=== PATIENT | male | born 1960 | race Caucasian/White ===

== ENCOUNTER 2017-10-10 09:08 | Emergency (ER) | payer MEDICAID, OTHER ==
[2017-10-10] MEDS ORDERED: IBUPROFEN 600 MG TAB PO ONE (09:23)
[2017-10-10] MEDS ORDERED: HYDROCODONE/APAP 5/325 TAB PO ONE (09:23)
--- NOTE | 2017-10-10 09:30 | EDPHY ---
H & P Time Seen by Provider: 10/10/17 09:14 HPI/ROS: HPI Left knee injury. 57-year-old male by private vehicle with his . This patient reports that Friday morning at 10:00 a.m. He was in a squat position. He was standing up from the squat position when his left knee slipped behind him and inverted while he was twisting. He complains of left knee pain since that time. He is able to bear weight on it somewhat but it is painful to do so. He describes the pain as mostly involving the lateral joint line and lateral anterior aspect of the lower knee. No history of fall. He denies any loss of sensation or weakness distal to the left knee. No other complaint. ROS: Constitutional: No fever, no chills. No weakness. Musculoskeletal: No back pain. No neck pain. As above. Skin: No rashes. No lacerations or abrasions. Neurological: No focal weakness or altered sensation. Past medical history: He denies any significant past medical history. He is not on any prescription medications. No allergies to medications. Social history: Smokes marijuana. Former cigarette smoker. No alcohol. Here with his . Physical Exam: General Appearance: Alert, no distress. This patient is responding to questions appropriately and in full sentences. This patient appears well- hydrated and well-nourished. Eyes: Pupils equal and round no pallor or injection. No lid edema, erythema or injection. Left knee exam: He has a small to moderate effusion. No erythema, no warmth, no ecchymosis appreciated on palpation and inspection of the soft tissues and bony aspects of the left knee. He does have tenderness on palpation over the lateral joint line as well as as well as the inferior lateral anterior aspect of the knee distal to the lateral joint line. The knee is stable to anterior and posterior drawer testing. Is stable to valgus and varus stress testing although this does cause him discomfort. The left lower extremity is neurovascularly intact with normal capillary refill in his digits and palpable dorsalis pedis pulse. Neurological: Motor sensory function is grossly intact. Cranial nerves are normal. Skin: Warm and dry, no rashes. No lacerations or abrasions. Musculoskeletal: Neck is supple and nontender. Extremities are symmetrical except noted. All joints range without pain or impingement except noted. Psychiatric: No agitation. No depression. Database: EKG: Imaging: Left knee x-ray series: Negative for fracture, subluxation, dislocation. Interpreted by me. Procedures: Emergency department course: Vital signs reviewed. He was mildly tachycardic in triage. He was given 600 mg of ibuprofen and 2 Austin tablets. His exam is consistent with a sprain to the lateral collateral ligament. I feel that dislocation with spontaneous reduction as well as fracture and septic joint are unlikely. X-rays to be obtained. 10:15 a.m., patient re-evaluated. Resting comfortably at this time. Reports pain medication has helped. Results of his x-ray discussed with him. Left knee placed in a knee immobilizer. Plan will be to discharge him to home with orthopedic follow-up on Friday or Friday of next week. He was also provided with crutches. He was instructed on partial weight-bearing only as tolerated when in the knee brace and using the crutches. He is in agreement with this plan. Return to emergency department precautions have been reviewed with him. All of his questions were answered. He was discharged from the emergency department in good condition. His is driving. Differential Diagnosis: The differential diagnosis on this patient includes but is not limited to left knee sprain. Knee dislocation, tibial plateau fracture, septic joint unlikely. This represents a partial list of diagnoses considered. These considerations are based on history, physical exam, past history, reassessment and diagnostic testing. Smoking Status: Former smoker Constitutional: Initial Vital Signs Temperature (C) 37.2 C 10/10/17 09:15 Heart Rate 107 H 10/10/17 09:15 Respiratory Rate 20 10/10/17 09:15 Blood Pressure 134/86 H 10/10/17 09:15 O2 Sat (%) 97 10/10/17 09:15 O2 Delivery Mode Room Air Allergies/Adverse Reactions: No Known Allergies Allergy (Unverified 10/10/17 09:14) Home Medications: Medication Instructions Recorded Hydrocodone/APAP 5/325 [Austin 1 - 2 tab PO Q4-6PRN PRN #10 tab 10/10/17 5/325 (*)] Medical Decision Making - Diagnostics Imaging Results: Imaging Impressions Knee X-Ray 10/10/17 09:19 Impression: Small medial trochlear impaction of unknown age. Otherwise negative. - Data Points Medications Given: Discontinued Medications Hydrocodone Bitart/Acetaminophen (Austin 5/325) 2 tab PO EDNOW ONE Stop: 10/10/17 09:24 Last Admin: 10/10/17 09:36 Dose: 2 tab Ibuprofen (Motrin) 600 mg PO EDNOW ONE Stop: 10/10/17 09:24 Last Admin: 10/10/17 09:36 Dose: 600 mg Departure - Departure Disposition: Home, Routine, Self-Care Clinical Impression: Left knee injury Condition: Good Instructions: Knee Sprain (ED) Additional Instructions: Read and follow provided instructions. Your knee must be in the brace when up and ambulatory. Partial weight-bearing as tolerated using crutches until cleared by Orthopedics. Follow-up with Dr. Eitan Vázquez of the Orthopedic service on Friday or Friday of next week. Please call his office for appointment time today. Explained this is for an emergency department follow-up. Ibuprofen dosin mg every 6 hours with meals for the next 3 days only. Take only as needed for pain. Austin/Percocet dosin-2 every 4-6 [address] for [address] not drive on this medication. Return to the emergency department for worsening pain, swelling, discoloration, loss of sensation or weakness in her foot or other serious concerns. Referrals: Lane Contreras DO [Primary Care Provider] - As per Instructions Eitan Vázquez MD [Medical Doctor] - As per Instructions Prescriptions: Hydrocodone/APAP 5/325 [Austin 5/325 (*)] 1 - 2 tab PO Q4-6PRN PRN #10 tab PRN Reason: Pain, Moderate
[2017-10-10 09:49] VITALS: RESP 18
[2017-10-10 10:34] VITALS: BP 137/65; PULSE 78; TEMP 98; O2SAT 96
== END 2017-10-10 10:33 | disposition home or self-care (01) ==
LOC: CED 09:08
DX: S89.92XA Unspecified injury of left lower leg, initial encounter (principal); Z87.891 Personal history of nicotine dependence; X58.XXXA Exposure to other specified factors, initial encounter
CPT/HCPCS: 73564-PO

== ENCOUNTER → 2017-11-14 | Outpatient (CLI) | payer MEDICAID | LOC: FIMAGING 07:55 | PROVIDERS: ATTEND Physician Assistant | DX: S83.282A Other tear of lateral meniscus, current injury, left knee, initial encounter (principal); R93.6 Abnormal findings on diagnostic imaging of limbs; M22.42 Chondromalacia patellae, left knee; M25.462 Effusion, left knee; M71.22 Synovial cyst of popliteal space [Baker], left knee; X50.0XXA Overexertion from strenuous movement or load, initial encounter ==

== ENCOUNTER 2018-12-29 08:32 | Emergency (ER) | payer MEDICAID | END 2018-12-29 10:28 | disposition home or self-care (01) | LOC: CED 08:32 ==